=== PATIENT | female | born 1960 | race Caucasian/White ===

== ENCOUNTER 2017-10-28 15:15 | Emergency (ER) | payer MEDICAID ==
[2017-10-28 15:40] LABS: BILIRUBIN,URINE NEGATIVE (NEGATIVE); CLARITY,URINE CLEAR (CLEAR); GLUCOSE, URINE (UA) NEGATIVE (NEGATIVE); KETONES,URINE (UA) NEGATIVE (NEGATIVE); LEUKOCYTE ESTERASE, URINE SMALL (NEGATIVE); NITRITE,URINE NEGATIVE (NEGATIVE); OCCULT BLOOD,URINE LARGE (NEGATIVE); PROTEIN,URINE NEGATIVE (NEGATIVE); UROBILINOGEN,URINE 0.2 (NORMAL) E.U./dL (NORMAL)
[2017-10-28] MEDS ORDERED: NITROFURANTOIN MACRO 100 MG CAPSULE PO STA (16:00)
[2017-10-28] MEDS ORDERED: PHENAZOPYRIDINE 100 MG TABLET PO STA (16:00)
--- NOTE | 2017-10-28 16:01 | ED Physician Documentation ---
PD HPI FEMALE - Stated complaint Stated Complaint: POSS UTI - Chief complaint Chief Complaint: UTI - History obtained from History obtained from: Patient - History of Present Illness Timing - onset: Yesterday (A few days of urinary burning and dysuria without flank pain or fevers or nausea. She has had hematuria though.) Review of Systems Constitutional: denies: Fever, Chills Respiratory: denies: Dyspnea, Cough GI: denies: Abdominal Pain, Nausea, Vomiting PD PAST MEDICAL HISTORY - Past Medical History Past Medical History: Yes Endocrine/Autoimmune: Type 2 diabetes HEENT: Macular degeneration Derm: Other Other Past Medical History: Carcinoma - Past Surgical History Past Surgical History: Yes HEENT: Cataracts, Detached retina repair, Other Derm: Skin cancer surgery - Present Medications Home Medications: Ambulatory Orders Medication Instructions Recorded Confirmed Losartan [Cozaar] 50 mg 10/28/17 Nitrofurantoin Monohyd/M-Cryst 1 tab PO BID 5 Days capsule 10/28/17 [Macrobid 100 mg Capsule] Phenazopyridine HCl [Pyridium] 200 mg PO TID #6 tablet 10/28/17 - Allergies Allergies/Adverse Reactions: Allergies Allergy/AdvReac Type Severity Reaction Status Date / Time gluten Allergy Mild Nausea Verified 10/28/17 15:32 latex Allergy Mild Rash Verified 10/28/17 15:32 - Social History Does the pt smoke?: No Smoking Status: Never smoker Does the pt drink ETOH?: No Does the pt have substance abuse?: No - Immunizations Immunizations are current?: Yes PD ED PE NORMAL - Vitals Vital signs reviewed: Yes - General General: Alert and oriented X 3, No acute distress - Abdomen Abdomen: Soft, Non tender - Back Back: No CVA TTP - Neuro Neuro: Alert and oriented X 3, Normal speech Results - Vitals Vitals: Vital Signs - 24 hr 10/28/17 10/28/17 15:27 16:21 Temperature 36.3 C L 36.2 C L Heart Rate 75 71 Respiratory 18 18 Rate Blood Pressure 164/82 H 158/74 H O2 Saturation 100 100 Oxygen O2 Source Room air - Labs Labs: Laboratory Tests 10/28/17 15:25 Urine Color YELLOW Urine Clarity CLEAR Urine pH 6.0 Ur Specific Clutier <=1.005 Urine Protein NEGATIVE Urine Glucose (UA) NEGATIVE Urine Ketones NEGATIVE Urine Occult Blood LARGE H Urine Nitrite NEGATIVE Urine Bilirubin NEGATIVE Urine Urobilinogen 0.2 (NORMAL) Ur Leukocyte Esterase SMALL H Urine RBC None Seen Urine WBC 4-5 Ur Squamous Epith Cells NONE SEEN Urine Bacteria None Seen Ur Microscopic Review INDICATED Urine Culture Comments INDICATED PD MEDICAL DECISION MAKING - Sepsis Event Vital Signs: Vital Signs - 24 hr 10/28/17 10/28/17 15:27 16:21 Temperature 36.3 C L 36.2 C L Heart Rate 75 71 Respiratory 18 18 Rate Blood Pressure 164/82 H 158/74 H O2 Saturation 100 100 Oxygen O2 Source Room air Departure - Departure Disposition: Home, Self Care Clinical Impression: Cystitis Condition: Good Record reviewed to determine appropriate education?: Yes Instructions: ED UTI Cystitis Female Prescriptions: Nitrofurantoin Monohyd/M-Cryst [Macrobid 100 mg Capsule] 1 tab PO BID 5 Days capsule Phenazopyridine HCl [Pyridium] 200 mg PO TID #6 tablet Comments: We will culture your urine, the results should be done in 48-72 hours. If an antibiotic change is necessary we will call you. Return if worse in the meantime, especially if you develop increasing flank pain, fevers, or cannot keep down the medication. Your blood pressure was elevated today on check into the emergency department. This does not mean that you have hypertension, it is a common phenomenon to come to the emergency department and have elevated blood pressure. I recommend that you see your primary care physician within the week to have it rechecked when you are feeling better. Discharge Date/Time: 10/28/17 16:21
[2017-10-28 16:10] LABS: BACTERIA,URINE None Seen /HPF (None Seen); RBC,URINE None Seen /HPF (0-5); SQUAMOUS EPITHELIAL CELL,UR NONE SEEN (<= Few)
[2017-10-28 16:22] VITALS: BP 158/74
== END 2017-10-28 16:21 | disposition home or self-care (01) ==
LOC: ED 15:15
DX: N30.90 Cystitis, unspecified without hematuria (principal); R03.0 Elevated blood-pressure reading, without diagnosis of hypertension; E11.9 Type 2 diabetes mellitus without complications
CPT/HCPCS: 81001; 87086; 87181; 99283; A9270; 81003

== ENCOUNTER 2017-11-03 16:32 | Emergency (ER) | payer MEDICAID ==
[2017-11-03 16:59] LABS: BILIRUBIN,URINE NEGATIVE (NEGATIVE); GLUCOSE, URINE (UA) NEGATIVE (NEGATIVE); KETONES,URINE (UA) NEGATIVE (NEGATIVE); LEUKOCYTE ESTERASE, URINE NEGATIVE (NEGATIVE); NITRITE,URINE NEGATIVE (NEGATIVE); OCCULT BLOOD,URINE NEGATIVE (NEGATIVE); PROTEIN,URINE NEGATIVE (NEGATIVE); UROBILINOGEN,URINE 0.2 (NORMAL) E.U./dL (NORMAL)
[2017-11-03 17:05] LABS: CLARITY,URINE CLEAR (CLEAR); HCG UR QUAL NEGATIVE
--- NOTE | 2017-11-03 17:31 | ED Physician Documentation ---
PD HPI FEMALE - Stated complaint Stated Complaint: FEM - Chief complaint Chief Complaint: General - History obtained from History obtained from: Patient - History of Present Illness Timing - onset: How many days ago (has had dysuria since the 3rd. Seen and got Rx for Macrobid. Was feeling dry mouth and lightheaded while taking it. Just finished it yesterday. Dysuria improved but feeling it back some again, and is feeling irritated in vaginal area with wiping. No discharge per se.) Timing - duration: Days Timing - details: Gradual onset, Still present Associated symptoms: Dysuria. No: Fever, Abdominal pain, Vaginal bleeding, Vaginal discharge, Urinary frequency Contributing factors: No: Exposed to STD Similar symptoms before: Has not had sx before Recently seen: Emergency Dept Review of Systems Constitutional: denies: Fever, Chills, Myalgias GI: reports: Nausea (after starting abx). denies: Abdominal Pain, Vomiting, Diarrhea : reports: Dysuria. denies: Discharge Skin: denies: Rash, Lesions PD PAST MEDICAL HISTORY - Past Medical History Cardiovascular: None Respiratory: None Neuro: None Endocrine/Autoimmune: Type 2 diabetes HEENT: Macular degeneration Derm: Other - Past Surgical History Past Surgical History: Yes HEENT: Cataracts, Detached retina repair, Other Derm: Skin cancer surgery - Present Medications Home Medications: Ambulatory Orders Medication Instructions Recorded Confirmed Losartan [Cozaar] 50 mg 10/28/17 Nitrofurantoin Monohyd/M-Cryst 1 tab PO BID 5 Days capsule 10/28/17 [Macrobid 100 mg Capsule] Phenazopyridine HCl [Pyridium] 200 mg PO TID #6 tablet 10/28/17 Cephalexin [Keflex] 500 mg PO TID #15 capsule 11/03/17 - Allergies Allergies/Adverse Reactions: Allergies Allergy/AdvReac Type Severity Reaction Status Date / Time gluten Allergy Mild Nausea Verified 11/03/17 16:37 latex Allergy Mild Rash Verified 11/03/17 16:37 - Social History Does the pt smoke?: No Smoking Status: Never smoker Does the pt drink ETOH?: No Does the pt have substance abuse?: No - Immunizations Immunizations are current?: Yes PD ED PE NORMAL - Vitals Vital signs reviewed: Yes - General General: Alert and oriented X 3, Well developed/nourished - HEENT HEENT: Pharynx benign - Cardiac Cardiac: RRR, No murmur - Respiratory Respiratory: Clear bilaterally - Female Female : 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 No cervicitis. ) - Rectal Rectal: Deferred - Back Back: No CVA TTP - Derm Derm: Normal color, Warm and dry, No rash Results - Vitals Vitals: Oxygen O2 Source Room air - Labs Labs: Microbiology 11/03/17 18:30 Wet Prep - Final Genital - Vaginal Laboratory Tests 11/03/17 16:45 Urine Color YELLOW Urine Clarity CLEAR Urine pH 7.0 Ur Specific Deane <=1.005 Urine Protein NEGATIVE Urine Glucose (UA) NEGATIVE Urine Ketones NEGATIVE Urine Occult Blood NEGATIVE Urine Nitrite NEGATIVE Urine Bilirubin NEGATIVE Urine Urobilinogen 0.2 (NORMAL) Ur Leukocyte Esterase NEGATIVE Ur Microscopic Review NOT INDICATED Urine Culture Comments NOT INDICATED Urine HCG, Qual NEGATIVE PD MEDICAL DECISION MAKING - ED course Complexity details: reviewed results, considered differential (i think symptoms are from secondary yeast. Will treat that. Could be recurrent early UTI, so Rx abx if not improved. ), d/w patient - Sepsis Event Vital Signs: Oxygen O2 Source Room air Departure - Departure Disposition: Home, Self Care Clinical Impression: Dysuria, Recent urinary tract infection Condition: Stable Record reviewed to determine appropriate education?: Yes Instructions: ED Dysuria Uncertain Cause Follow-Up: [facility] [Primary Care Provider] - Prescriptions: Cephalexin [Keflex] 500 mg PO TID #15 capsule Comments: We gave you a single antifungal tablet and see if that would clear the apparent mild yeast infection. You can use some lidocaine gel periurethral to help with the burning feeling. Your urine test looks good right now so I think the infection is cleared. If however you continue with discomfort urinating over the next couple of days and thinks having cleared, then it may be a persistent infection and start the cephalexin. Recheck if still not improved a few days after that. Discharge Date/Time: 11/03/17 19:23
[2017-11-03] MEDS ORDERED: FLUCONAZOLE 100 MG TABLET PO STA (17:53)
[2017-11-03] MEDS ORDERED: LIDOCAINE JELLY 2% 5 ML TUBE TOP STA (18:31)
[2017-11-03 19:11] VITALS: BP 143/84
== END 2017-11-03 19:23 | disposition home or self-care (01) ==
LOC: ED 16:32
DX: R30.0 Dysuria (principal)
CPT/HCPCS: 81003; 81025; 87210; 87491; 87591; 99283; A9270; J3490; 81001; 87086

== ENCOUNTER 2017-11-07 03:57 | Outpatient (CLI) | payer MEDICAID | END 2017-11-07 03:58 | disposition critical access hospital (66) | LOC: EMS 03:57 | PROVIDERS: ATTEND Surgery | DX: R10.9 Unspecified abdominal pain (principal); R11.2 Nausea with vomiting, unspecified | CPT/HCPCS: A0425; A0429 ==

== ENCOUNTER 2017-11-07 04:37 | Inpatient (IN) | payer MEDICAID ==
[2017-11-07] MEDS ORDERED: ONDANSETRON 4 MG/2 ML VIAL IVP STA (04:52)
[2017-11-07] MEDS ORDERED: ACETAMINOPHEN 500 MG TABLET PO STA (04:52)
[2017-11-07] MEDS ORDERED: SODIUM CHLORIDE 0.9% 1,000 ML IV ONE (04:52)
--- NOTE | 2017-11-07 05:12 | ED Physician Documentation ---
History of Present Illness - Stated complaint Stated Complaint: RIGHT FLANK PAIN - Chief complaint Chief Complaint: General - History obtained from History obtained from: Patient - Additonal information Additional information: 56-year-old female presents the emergency department with right flank pain which has progressively worsened throughout the day and now is associated with nausea and vomiting. The patient reports feeling weak, chilled and fatigued. No specific triggering factors. No relieving factors. No other associated symptoms. Review of Systems Constitutional: reports: Chills, Fatigue Eyes: denies: Discharge Ears: denies: Drainage/discharge Nose: denies: Congestion Throat: denies: Sore throat Cardiac: denies: Chest pain / pressure, Palpitations Respiratory: denies: Dyspnea GI: reports: Abdominal Pain, Nausea, Vomiting : denies: Hematuria Musculoskeletal: denies: Extremity pain Neurologic: denies: Syncope PD PAST MEDICAL HISTORY - Past Medical History Past Medical History: Yes Cardiovascular: None Respiratory: None Neuro: None Endocrine/Autoimmune: Type 2 diabetes HEENT: Macular degeneration Derm: Other - Past Surgical History Past Surgical History: Yes HEENT: Cataracts, Detached retina repair, Other Derm: Skin cancer surgery - Present Medications Home Medications: Ambulatory Orders Medication Instructions Recorded Confirmed Losartan [Cozaar] 50 mg 10/28/17 Nitrofurantoin Monohyd/M-Cryst 1 tab PO BID 5 Days capsule 10/28/17 [Macrobid 100 mg Capsule] Phenazopyridine HCl [Pyridium] 200 mg PO TID #6 tablet 10/28/17 Cephalexin [Keflex] 500 mg PO TID #15 capsule 11/03/17 - Allergies Allergies/Adverse Reactions: Allergies Allergy/AdvReac Type Severity Reaction Status Date / Time gluten Allergy Mild Nausea Verified 11/07/17 04:46 latex Allergy Mild Rash Verified 11/07/17 04:46 - Social History Does the pt smoke?: No Smoking Status: Never smoker Does the pt drink ETOH?: Yes Does the pt have substance abuse?: No - Immunizations Immunizations are current?: Yes - POLST Patient has POLST: No PD ED PE NORMAL - General General: Alert and oriented X 3, No acute distress - HEENT HEENT: Atraumatic, PERRL, EOMI - Neck Neck: Supple, no meningeal sign - Cardiac Cardiac: RRR, Strong equal pulses - Respiratory Respiratory: No respiratory distress, Clear bilaterally - Abdomen Abdomen: Normal bowel sounds - Derm Derm: Normal color - Extremities Extremities: No deformity, No edema - Neuro Neuro: Alert and oriented X 3, Normal speech - Psych Psych: Normal mood PD ED PE EXPANDED - Abdomen Abdomen: Tender to palpation, Other (Right flank pain). No: Distended, Rebound , Guarding, Epigastric, LUQ, RLQ, LLQ Results - Vitals Vitals: Vital Signs - 24 hr 11/07/17 11/07/17 11/07/17 04:42 04:52 05:26 Temperature 36.7 C Heart Rate 71 83 Respiratory 20 20 Rate Blood Pressure 155/84 H 170/80 H O2 Saturation 98 100 11/07/17 05:32 Temperature Heart Rate 72 Respiratory 20 Rate Blood Pressure 144/89 H O2 Saturation 100 Oxygen O2 Source Room air - Labs Labs: Laboratory Tests 11/07/17 11/07/17 05:00 05:00 WBC 10.4 RBC 3.99 L Hgb 10.4 L Hct 31.7 L MCV 79.3 L MCH 26.0 L MCHC 32.8 RDW 14.9 Plt Count 300 MPV 7.1 L Neut # (Auto) 8.5 H Lymph # (Auto) 1.4 L Starke # (Auto) 0.5 Eos # (Auto) 0.0 Baso # (Auto) 0.0 Absolute Nucleated RBC 0.00 Nucleated RBC % 0.0 Sodium 118 L* Potassium 3.9 Chloride 84 L Carbon Dioxide 23 Anion Gap 11.0 BUN 10 Creatinine 0.5 Estimated GFR (MDRD) 129 Glucose 126 H Calcium 9.3 Total Bilirubin 1.9 H AST 29 ALT 28 Alkaline Phosphatase 65 Total Protein 8.0 Albumin 4.2 Globulin 3.8 Albumin/Globulin Ratio 1.1 Lipase 27 - Rads (name of study) CT Abdomen/pelvis Radiology: Final report received (Impression:Descendingdiverticulitis) PD MEDICAL DECISION MAKING - ED course ED course: The patient has acute hyponatremia which may be secondary to hypovolemia from nausea and vomiting and the fact that she takes losartan. The patient also has acute diverticulitis which is most likely the source of her pain. The patient will require admission to the hospital for ongoing management of her acute symptoms. The findings and plan were discussed the patient who understands and agrees to the plan. The case was discussed with the hospitalist Dr. Alonso who accepts the patient onto her service - Sepsis Event Vital Signs: Vital Signs - 24 hr 11/07/17 11/07/17 11/07/17 04:42 04:52 05:26 Temperature 36.7 C Heart Rate 71 83 Respiratory 20 20 Rate Blood Pressure 155/84 H 170/80 H O2 Saturation 98 100 11/07/17 05:32 Temperature Heart Rate 72 Respiratory 20 Rate Blood Pressure 144/89 H O2 Saturation 100 Oxygen O2 Source Room air Departure - Departure Disposition: [facility] DC/Xfer Clinical Impression: Hyponatremia, Diverticulitis Vomiting Qualifiers: Vomiting type: unspecified Vomiting Intractability: unspecified Nausea presence : with nausea Qualified Code(s): R11.2 - Nausea with vomiting, unspecified
[2017-11-07] MEDS ORDERED: MORPHINE 10 MG/ML VIAL IVP STA (05:16)
[2017-11-07 05:20] LABS: BASOPHILS % (AUTO) 0.5 %; EOSINOPHILS % (AUTO) 0.2 %; HGB - HEMOGLOBIN 10.4 g/dL (12.0-16.0); LYMPHOCYTES # (AUTO) 1.4 10^3/uL (1.5-3.5); MEAN CORPUSCULAR HGB CONC 32.8 g/dL (32.0-36.0); MEAN CORPUSCULAR VOLUME 79.3 fL (81.0-99.0); MEAN PLATELET VOLUME 7.1 fL (7.9-10.8); MONOCYTES # (AUTO) 0.5 10^3/uL (0.0-1.0); MONOCYTES % (AUTO) 4.9 %; NEUTROPHILS # (AUTO) 8.5 10^3/uL (1.5-6.6); NEUTROPHILS % (AUTO) 81.4 %; PLT - PLATELET COUNT 300 10^3/uL (130-450); RED BLOOD COUNT 3.99 10^6/uL (4.20-5.40); RED CELL DISTRIBUTION WIDTH 14.9 % (12.0-15.0); WHITE BLOOD COUNT 10.4 x10^3/uL (4.8-10.8)
[2017-11-07] MEDS ORDERED: IOPAMIDOL-300 100 ML VIAL ONE (05:25)
[2017-11-07 05:27] LABS: ALBUMIN 4.2 g/dL (3.2-5.5); ALBUMIN/GLOBULIN RATIO 1.1 (1.0-2.2); BILIRUBIN,TOTAL 1.9 mg/dL (0.2-1.0); CALCIUM 9.3 mg/dL (8.5-10.3); CREATININE 0.5 mg/dL (0.4-1.0)
[2017-11-07] MEDS ORDERED: IOPAMIDOL-300 100 ML VIAL IVP ONE (05:52)
--- NOTE | 2017-11-07 06:10 | CT Report ---
Procedure Date: 11/07/2017 Accession Number: [id number] / [id number] Procedure: CT - Abdomen/Pelvis W/ CPT Code: FULL RESULT: EXAM: CT ABDOMEN AND PELVIS EXAM DATE: 11/07/2017 05:54 AM. CLINICAL HISTORY: Right flank pain. COMPARISONS: None. TECHNIQUE: Routine helical CT imaging was performed through the abdomen and pelvis. IV contrast: Yes. Enteric contrast: No. Reconstructions: Coronal and sagittal. In accordance with CT protocol optimization, one or more of the following dose reduction techniques were utilized for this exam: automated exposure control, adjustment of mA and/or KV based on patient size, or use of iterative reconstructive technique. FINDINGS: Lung Bases: Unremarkable. Liver: Mildly fatty. No suspicious masses. Gallbladder/Bile Ducts: Unremarkable. Spleen: Unremarkable. Pancreas: Unremarkable. Adrenal Glands: Unremarkable. Kidneys: Unremarkable. No suspicious masses or hydronephrosis. Peritoneal Cavity/Bowel: Proximal descending colon diverticulitis with mild surrounding inflammatory changes. No gross perforation or abscess seen. Bowel otherwise appears unremarkable. Pelvic Organs: Bladder, uterus, and adnexa appear unremarkable. Vasculature: No aneurysms or other significant abnormality. Bones: No significant abnormality with incidental note of mild chronic-appearing T11 superior endplate compression deformity. Other: None. IMPRESSION: 1. Proximal descending colon diverticulitis without apparent complication. 2. Mildly fatty liver. RADIA
[2017-11-07] MEDS ORDERED: PIPERACILLIN/TAZOBACTAM 4.5 GM in SODIUM CHLORIDE 0.9% MINIBAG 100 ML IV STA (06:11)
[2017-11-07] MEDS ORDERED: SODIUM CHLORIDE FLUSH 0.9% 10 ML SYRINGE IVP PRN (06:34)
[2017-11-07] MEDS ORDERED: ONDANSETRON ODT 4 MG TABLET TL PRN (06:34)
[2017-11-07] MEDS ORDERED: oxyCODONE 5 MG TABLET PO PRN (06:34)
[2017-11-07] MEDS ORDERED: ONDANSETRON 4 MG/2 ML VIAL IVP PRN (06:34)
[2017-11-07 06:37] LABS: BILIRUBIN,URINE NEGATIVE (NEGATIVE); GLUCOSE, URINE (UA) NEGATIVE (NEGATIVE); KETONES,URINE (UA) 15 mg/dL (NEGATIVE); LEUKOCYTE ESTERASE, URINE NEGATIVE (NEGATIVE); NITRITE,URINE NEGATIVE (NEGATIVE); OCCULT BLOOD,URINE NEGATIVE (NEGATIVE); PH,URINE 7.5 PH (5.0-7.5); PROTEIN,URINE NEGATIVE (NEGATIVE); UROBILINOGEN,URINE 0.2 (NORMAL) E.U./dL (NORMAL)
[2017-11-07 06:40] LABS: CLARITY,URINE CLEAR (CLEAR)
[2017-11-07] MEDS ORDERED: PHENAZOPYRIDINE HCL 200 MG PO SCH (06:45)
[2017-11-07] MEDS: PHENAZOPYRIDINE 100 MG TABLET PO SCH ×3 (08:00→22:12)
[2017-11-07] MEDS: SODIUM CHLORIDE 0.9% 1,000 ML IV SCH ×2 (08:00→18:16)
[2017-11-07] MEDS: POLYETHYLENE GLYCOL 3350 17 GM PACKET PO SCH (08:02)
[2017-11-07] MEDS: SODIUM CHLORIDE FLUSH 0.9% 10 ML SYRINGE IVP SCH ×2 (08:02→16:35)
[2017-11-07] MEDS ORDERED: NITROFURANTOIN MACRO 100 MG CAPSULE PO SCH (09:00)
[2017-11-07 09:12] LABS: CALCIUM 9.4 mg/dL (8.5-10.3); CREATININE 0.6 mg/dL (0.4-1.0)
[2017-11-07 10:23] LABS: HB2 TOTAL 11.3 g/dL; HEMOGLOBIN A1C 0.46 g/dL; HEMOGLOBIN A1C % 5.9 % (4.6-6.2)
--- NOTE | 2017-11-07 11:13 | HISTORY & PHYSICAL EXAMINATION ---
Chief Complaint - Chief Complaint Chief Complaint: right mary pain History of Present Illness - History Obtained From History obtained from: pt - History of Present Illness HPI Comment/Other: Ms. Mena is a 56-year-old female with a H significance for DM2, macular degeneration, who presents the emergency department with complaints of right flank pain. pt report she has progressively worsened throughout 4 days. initially it was associated with nausea. Then she developed vomiting and loose stool The patient reports feeling weak, chilled and fatigued. She report her pain located her right mary area, and the pain is more likely pressure. Pt report she usually follow up the naturopathic doctor, and she took more than 10 naturopathic medications. Pt denies chest pain, Shortness of breath, fever, cough, headache, vision change, dysuria. CT of abdomen reveals proximal descending colon diverticulitis without apparent complication. Her sodium is 118. History - Past Medical History Cardiovascular: reports: None Respiratory: reports: None Neuro: reports: None Endocrine/Autoimmune: reports: Type 2 diabetes HEENT: reports: Macular degeneration Derm: reports: Other MRSA Hx?: No - Past Surgical History HEENT: reports: Cataracts, Detached retina repair, Other Derm: reports: Skin cancer surgery - Family & Social History Family History: Mother: Alive and Well, Diabetes, Type 2, Father: , CAD , Diabetes, Type 2 Family History Comment/Other: pt report she is single, and no child. she is living at [facility]. Living arrangement: At home Living Situation: Alone Social History Notes: she denies cigarette smoking, alcohol and drug abuse - Substance History Use: Uses substance without health or social issues: NONE - POLST Patient has POLST: No POLST Status: Full Code Meds/Allgy - Home Medications Home Medications: Ambulatory Orders Medication Instructions Recorded Confirmed Losartan [Cozaar] 50 mg PO DAILY 10/28/17 11/07/17 Metformin HCl [Metformin HCl] 11/07/17 - Allergies Allergies/Adverse Reactions: Allergies Allergy/AdvReac Type Severity Reaction Status Date / Time gluten Allergy Mild Nausea Verified 11/07/17 04:46 latex Allergy Mild Rash Verified 11/07/17 04:46 Review of Systems - Constitutional Constitutional: reports: Fatigue, Chills, Weakness. denies: Fever, Malaise, Poor appetite, Diaphoresis, Night sweats, Weight gain, Weight loss - Eyes Eyes: denies: Pain, Irritation, Amaurosis, Blurred vision, Spots in vision, Field loss, Vision loss, Dipolpia, Corrective lenses - Ears, Nose & Throat Ears, Nose & Throat: denies: Ear pain, Hearing loss, Vertigo, Nasal pain, Nosebleeds, Nasal obstruction, Nasal congestion, Dentures, Sore throat, Mouth lesions, Dental decay - Cardiovascular Cariovascular: denies: Irregular heart rate, Palpitations, Chest pain, Edema, Lightheadedness, Syncope, Exertional dyspnea, Decr. exercise tolerance - Respiratory Respiratory: denies: Cough, Sputum production, Wheezing, Snoring, Hemoptysis, Orthopnea, SOB at rest, SOB with exertion - Gastrointestinal Gastrointestinal: reports: Abdominal pain, Nausea, Vomiting. denies: Abdominal distention, Constipation, Diarrhea, Change in bowel habits, Rectal bleeding, Black stools, Bloody stools, Bile emesis, Mary blood emesis, Coffee grounds emesis, Reflux/heartburn, Bloating, Poor appetite - Genitourinary Genitourinary: denies: Dysuria, Frequency, Urgency, Hematuria, Incontinence, Flank pain, Nocturia, Urethral discharge - Musculoskeletal Musculoskeletal: denies: Muscle pain, Muscle aches, Stiffness, Limited range of motion, Muscle weakness - Integumentary Integumentary: denies: Rash, Pruritis, Lesions, Dryness, Lumps, Acne, Pigment changes, Nail changes - Neurological Neurological: denies: General weakness, Focal weakness, Headache, Dizziness, Numbness, Memory problems, Pre-existing deficit, Abnormal gait, Seizures, Incoordination, Slurred speech - Psychiatric Psychiatric: denies: Depression, Anxiety, Suicidal, Delusions, Hallucinations, Homicidal - Endocrine Endocrine: denies: Polyuria, Polydypsia, Polyphagia, Intolerance to cold - Hematologic/Lymphatic Hematologic/Lymphatic: denies: Anemia, Bruising, Petechiae, Blood clots, Lymphadenopathy, Bleeding tendencies Exam - Vital Signs Reviewed Vital Signs: Yes Vital Signs: Vital Signs x48h Temp Pulse Pulse Resp BP BP Pulse Ox 11/07/17 07:30 36.6 C 65 22 129/75 99 11/07/17 06:55 74 17 135/95 H 100 - Physical Exam General Appearance: positive: No acute distress, Alert. negative: Lethargic Eyes Bilateral: positive: Normal inspection, PERRL, No lid inflammation, Conjunctivae nml ENT: positive: ENT inspection nml, Pharynx nml, No signs of dehydration. negative: Purulent nasal drainage, Pharyngeal erythema, Oral lesions Neck: positive: Nml inspection, Thyroid nml, No JVD, Trachea midline. negative : Thyromegaly, Lymphadenopathy (R), Lymphadenopathy (L), Stiff neck, Swelling/ bruising, Tracheal deviation Respiratory: positive: Chest non-tender, No respiratory distress, Breath sounds nml. negative: Wheezes, Rales, Rhonchi Cardiovascular: positive: Regular rate & rhythm, No murmur, No gallop. negative : Irregularly irregular, Extrasystoles, Tachycardia, Bradycardia, JVD present, Systolic murmur, Diastolic murmur Peripheral Pulses: positive: 2+ Abdomen: positive: Non-tender, No organomegaly, Nml bowel sounds, No distention. negative: Tenderness, Guarding, Rebound Back: positive: Nml inspection. negative: CVA tenderness (R), CVA tenderness (L ) Skin: positive: Color nml, No rash, Warm, Dry. negative: Cyanosis, Diaphoresis , Pallor Extremities: positive: Non-tender, Full ROM, Nml appearance. negative: Calf tenderness, Joint swelling, Pamela's sign/cords Neurologic/Psychiatric: positive: Oriented x3, Motor nml, Sensation nml, Mood/ affect nml. negative: Weakness, Sensory loss, Facial droop, Slurred/abnml speech, Depressed mood/affect Conclusion/Plan - Problem List (1) Diverticulitis Conclusion/Plan: CT reveals diverticulitis, pt has abdominal pain treat Zosyn daily lab and vital monitor (2) Hyponatremia Conclusion/Plan: Na is 118, it seems hypovolume hyponatremia NS of IVF daily lab monitor (3) DM2 (diabetes mellitus, type 2) Conclusion/Plan: hold Mentformin start slide scale, ACHS hypoglycemia (5) HTN (hypertension) Conclusion/Plan: remain home meds Losartan vital monitor (6) DVT prophylaxis Conclusion/Plan: SCD. pt has no limitation of mobility (7) Full code status Conclusion/Plan: pt request full code - Lab Results Fish Bones: 11/07/17 05:00 11/07/17 09:00 Core Measures - Anticipated LOS I expect patient to be DC'd or transferred within 96 hours.: Yes - DVT/VTE - Prophylaxis VTE/DVT Device ordered at admit?: Yes VTE/DVT Prophylaxis med ordered at admit?: No
[2017-11-07] MEDS: INSULIN ASPART 300 UNIT/3 ML PEN SUBQ SCH ×3 (12:09→22:12)
[2017-11-07] MEDS: PIPERACILLIN/TAZOBACTAM 4.5 GM in SODIUM CHLORIDE 0.9% MINIBAG 100 ML IV SCH ×2 (12:09→19:40)
[2017-11-07] MEDS: FERROUS SULFATE 325 MG TABLET PO SCH (12:12)
[2017-11-07] MEDS: ACETAMINOPHEN 325 MG TABLET PO PRN (12:36)
[2017-11-07 12:56] LABS: MEAN RETIC VALUE 109.7; RED BLOOD COUNT 4.21 10^6/uL (4.20-5.40)
[2017-11-07 13:19] LABS: % IRON SATURATION 6 % (20-50); IRON 29 ug/dL (28-170); TOTAL IRON BINDING CAPACITY 490 ug/dL (250-450); TRANSFERRIN 350 mg/dL (192-382)
[2017-11-07 13:31] LABS: FERRITIN 14.5 ng/mL (11.0-306.8)
[2017-11-07 15:08] LABS: CALCIUM 9.4 mg/dL (8.5-10.3); CREATININE 0.7 mg/dL (0.4-1.0)
--- NOTE | 2017-11-07 15:44 | PROVIDER PROGRESS NOTE ---
Objective - Vital Signs/Intake & Output Intake & Output: Intake & Output 11/04/17 11/05/17 11/06/17 11/07/17 23:59 23:59 23:59 23:59 Intake Total 1030 Balance 1030 - Lab Results Fish Bones: 11/07/17 05:00 11/07/17 14:55 Other Labs: Lab Results x24hrs 11/07/17 11/07/17 11/07/17 Range/Units 14:55 12:45 12:45 RBC (4.20-5.40) 10^6/uL Reticulocyte % (Auto) (0.5-2.3) % Absolute Retic (0.020-0.110) 10^6/uL Sodium 131 L (135-145) mmol/L Potassium 3.9 (3.5-5.0) mmol/L Chloride 97 L (101-111) mmol/L Carbon Dioxide 25 (21-32) mmol/L Anion Gap 9.0 (6-13) BUN 8 (6-20) mg/dL Creatinine 0.7 (0.4-1.0) mg/dL Estimated GFR (MDRD) 87 L (>89) Glucose 126 H (70-100) mg/dL Calcium 9.4 (8.5-10.3) mg/dL Iron (28-170) ug/dL TIBC (250-450) ug/dL % Saturation (20-50) % Transferrin (192-382) mg/dL Ferritin 14.5 (11.0-306.8) ng/mL Lactate Dehydrogenase 137 (91-225) IU/L Vitamin B12 1472 H (180-914) pg/mL 11/07/17 11/07/17 11/07/17 Range/Units 12:45 12:45 12:45 RBC 4.21 (4.20-5.40) 10^6/uL Reticulocyte % (Auto) 1.59 (0.5-2.3) % Absolute Retic 0.067 (0.020-0.110) 10^6/uL Sodium 130 L (135-145) mmol/L Potassium (3.5-5.0) mmol/L Chloride (101-111) mmol/L Carbon Dioxide (21-32) mmol/L Anion Gap (6-13) BUN (6-20) mg/dL Creatinine (0.4-1.0) mg/dL Estimated GFR (MDRD) (>89) Glucose (70-100) mg/dL Calcium (8.5-10.3) mg/dL Iron 29 (28-170) ug/dL TIBC 490 H (250-450) ug/dL % Saturation 6 L (20-50) % Transferrin 350 (192-382) mg/dL Ferritin (11.0-306.8) ng/mL Lactate Dehydrogenase (91-225) IU/L Vitamin B12 (180-914) pg/mL 11/07/17 Range/Units 09:00 RBC (4.20-5.40) 10^6/uL Reticulocyte % (Auto) (0.5-2.3) % Absolute Retic (0.020-0.110) 10^6/uL Sodium 125 L (135-145) mmol/L Potassium 3.8 (3.5-5.0) mmol/L Chloride 91 L (101-111) mmol/L Carbon Dioxide 24 (21-32) mmol/L Anion Gap 10.0 (6-13) BUN 9 (6-20) mg/dL Creatinine 0.6 (0.4-1.0) mg/dL Estimated GFR (MDRD) 104 (>89) Glucose 134 H (70-100) mg/dL Calcium 9.4 (8.5-10.3) mg/dL Iron (28-170) ug/dL TIBC (250-450) ug/dL % Saturation (20-50) % Transferrin (192-382) mg/dL Ferritin (11.0-306.8) ng/mL Lactate Dehydrogenase (91-225) IU/L Vitamin B12 (180-914) pg/mL
[2017-11-07 21:20] LABS: CREATININE 0.8 mg/dL (0.4-1.0)
[2017-11-08] MEDS: SODIUM CHLORIDE FLUSH 0.9% 10 ML SYRINGE IVP SCH ×3 (00:45→16:46)
[2017-11-08] MEDS: PIPERACILLIN/TAZOBACTAM 4.5 GM in SODIUM CHLORIDE 0.9% MINIBAG 100 ML IV SCH ×4 (00:46→19:21)
[2017-11-08 04:50] LABS: BASOPHILS # (AUTO) 0.1 10^3/uL (0.0-0.1); BASOPHILS % (AUTO) 1.2 %; EOSINOPHILS # (AUTO) 0.1 10^3/uL (0.0-0.7); EOSINOPHILS % (AUTO) 2.1 %; HGB - HEMOGLOBIN 9.4 g/dL (12.0-16.0); LYMPHOCYTES # (AUTO) 1.4 10^3/uL (1.5-3.5); LYMPHOCYTES % (AUTO) 23.8 %; MEAN CORPUSCULAR HEMOGLOBIN 26.3 pg (27.0-31.0); MEAN CORPUSCULAR HGB CONC 33.2 g/dL (32.0-36.0); MEAN CORPUSCULAR VOLUME 79.2 fL (81.0-99.0); MEAN PLATELET VOLUME 6.9 fL (7.9-10.8); MONOCYTES # (AUTO) 0.7 10^3/uL (0.0-1.0); MONOCYTES % (AUTO) 12.3 %; NEUTROPHILS # (AUTO) 3.5 10^3/uL (1.5-6.6); NEUTROPHILS % (AUTO) 60.6 %; PLT - PLATELET COUNT 256 10^3/uL (130-450); RED BLOOD COUNT 3.57 10^6/uL (4.20-5.40); RED CELL DISTRIBUTION WIDTH 14.8 % (12.0-15.0); WHITE BLOOD COUNT 5.8 x10^3/uL (4.8-10.8)
[2017-11-08 04:55] LABS: CALCIUM 8.7 mg/dL (8.5-10.3); CREATININE 0.8 mg/dL (0.4-1.0)
[2017-11-08] MEDS: PHENAZOPYRIDINE 100 MG TABLET PO SCH ×3 (06:03→21:21)
[2017-11-08] MEDS: SODIUM CHLORIDE 0.9% 1,000 ML IV SCH ×2 (06:07→16:45)
[2017-11-08] MEDS: POLYETHYLENE GLYCOL 3350 17 GM PACKET PO SCH (08:57)
[2017-11-08] MEDS: INSULIN ASPART 300 UNIT/3 ML PEN SUBQ SCH ×4 (08:57→20:40)
[2017-11-08] MEDS: FERROUS SULFATE 325 MG TABLET PO SCH (08:57)
[2017-11-08] MEDS: ACETAMINOPHEN 325 MG TABLET PO PRN (10:45)
--- NOTE | 2017-11-08 14:38 | PROVIDER PROGRESS NOTE ---
Subjective - Prog Note Date Prog Note Date: 11/08/17 - Subjective Pt reports feeling: Improved Subjective: pt report she had a good improvement. she feels her abdominal pain is good controlled. she feel more stronger. she report her caregiver will come back tomorrow. Pt denies chest pain, fever, chill, SOB. she concern her diet. she report her diet often make her cramping and diarrhea. 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 Current Medications - Current Medications Current Medications: Active Medications Acetaminophen (Tylenol) 650 mg PO Q4HR PRN PRN Reason: Pain 1 to 4 Last Admin: 11/08/17 10:45 Dose: 650 mg Ferrous Sulfate (Feosol) 325 mg PO DAILYWM [facility] Last Admin: 11/08/17 08:57 Dose: 325 mg Sodium Chloride (Normal Saline 0.9%) 1,000 mls @ 100 mls/hr IV .Q10H [facility] Last Admin: 11/08/17 06:07 Dose: 100 mls/hr Piperacillin Sod/Tazobactam (Sod 4.5 gm/ Sodium Chloride) 100 mls @ 200 mls/hr IV Q6H [facility] Last Infusion: 11/08/17 12:40 Dose: Infused Insulin Aspart (Novolog) 1 - 5 unit SUBQ 0800,1200,1700,2100 [facility] PRN Reason: Protocol Last Admin: 11/08/17 12:05 Dose: Not Given Ondansetron HCl (Zofran Inj) 4 mg IVP Q6HR PRN PRN Reason: Nausea / Vomiting Ondansetron HCl (Zofran Odt) 4 mg TL Q6HR PRN PRN Reason: Nausea / Vomiting Oxycodone HCl (Roxicodone) 5 mg PO Q4HR PRN PRN Reason: Pain 5 to 7 Phenazopyridine HCl (Pyridium) 200 mg PO TID [facility] Stop: 11/08/17 22:01 Last Admin: 11/08/17 13:37 Dose: 200 mg Polyethylene Glycol (Miralax) 17 gm PO DAILY [facility] Last Admin: 11/08/17 08:57 Dose: 17 gm Sodium Chloride (Normal Saline Flush 0.9%) 10 ml IVP PRN PRN PRN Reason: NEEDED PER PROVIDER ORDERS Sodium Chloride (Normal Saline Flush 0.9%) 10 ml IVP 0100,0900,1700 [facility] Last Admin: 11/08/17 08:57 Dose: Not Given Losartan [Cozaar] 50 mg PO QPM 10/28/17 Ascorbic Acid 500 mg PO DAILY 11/07/17 Aspirin 325 mg PO DAILY 11/07/17 Cholecalciferol (Vitamin D3) [Vitamin D3] 1,000 units PO DAILY 11/07/17 Cyanocobalamin (Vitamin B-12) [Vitamin B-12] 1,000 mcg PO DAILY 11/07/17 Metformin HCl [Metformin HCl] 500 mg PO TIDWM 11/07/17 Potassium Gluconate 99 mg PO DAILY 11/07/17 Saccharomyces Boulardii [Florastor] 250 mg PO BIDWM 11/07/17 Vitamin B Complex 1 tab PO DAILY 11/07/17 Objective - Vital Signs/Intake & Output Reviewed Vital Signs: Yes Vital Signs: Vital Signs x48h Temp Pulse Resp BP Pulse Ox 11/08/17 07:46 36.8 C 57 L 16 96/55 L 96 Intake & Output: Intake & Output 11/05/17 11/06/17 11/07/17 11/08/17 23:59 23:59 23:59 23:59 Intake Total 2870 3130 Balance 2870 3130 - Objective General Appearance: positive: No acute distress, Alert. negative: Lethargic Eyes Bilateral: positive: Normal inspection, PERRL, No lid inflammation, Conjunctivae nml ENT: positive: ENT inspection nml, Pharynx nml, No signs of dehydration. negative: Purulent nasal drainage, Pharyngeal erythema, Oral lesions Neck: positive: Nml inspection, Thyroid nml, No JVD, Trachea midline. negative : Thyromegaly, Lymphadenopathy (R), Lymphadenopathy (L), Stiff neck, Carotid bruit, Swelling/bruising, Tracheal deviation Respiratory: positive: Chest non-tender, No respiratory distress, Breath sounds nml. negative: Wheezes, Rales, Rhonchi Cardiovascular: positive: Regular rate & rhythm, No murmur, No gallop. negative : Irregularly irregular, Extrasystoles, Tachycardia, Bradycardia, JVD present, Systolic murmur, Diastolic murmur Peripheral Pulses: 2+ Radial (R), 2+ Radial (L), 2+ Dorsalis pedis (R), 2+ Dorsalis pedis (L) Abdomen: positive: Non-tender, No organomegaly, Nml bowel sounds, No distention. negative: Tenderness, Guarding, Rebound Back: positive: Nml inspection. negative: CVA tenderness (R), CVA tenderness (L ) Skin: positive: Color nml, No rash, Warm, Dry. negative: Cyanosis, Diaphoresis , Pallor Extremities: positive: Non-tender, Full ROM, Nml appearance. negative: Calf tenderness, Joint swelling, Pamela's sign/cords Neurologic/Psychiatric: positive: Oriented x3, Motor nml, Sensation nml, Mood/ affect nml. negative: Weakness, Sensory loss, Facial droop, Slurred/abnml speech, Depressed mood/affect - Lab Results Fish Bones: 11/08/17 04:40 11/08/17 04:40 Other Labs: Lab Results x24hrs 11/08/17 11/08/17 11/08/17 Range/Units 11:10 07:38 04:40 WBC 5.8 (4.8-10.8) x10^3/uL RBC 3.57 L (4.20-5.40) 10^6/uL Hgb 9.4 L (12.0-16.0) g/dL Hct 28.3 L (37.0-47.0) % MCV 79.2 L (81.0-99.0) fL MCH 26.3 L (27.0-31.0) pg MCHC 33.2 (32.0-36.0) g/dL RDW 14.8 (12.0-15.0) % Plt Count 256 (130-450) 10^3/uL MPV 6.9 L (7.9-10.8) fL Neut # (Auto) 3.5 (1.5-6.6) 10^3/uL Lymph # (Auto) 1.4 L (1.5-3.5) 10^3/uL [place] # (Auto) 0.7 (0.0-1.0) 10^3/uL Eos # (Auto) 0.1 (0.0-0.7) 10^3/uL Baso # (Auto) 0.1 (0.0-0.1) 10^3/uL Absolute Nucleated RBC 0.00 x10^3/uL Nucleated RBC % 0.1 /100WBC Sodium (135-145) mmol/L Potassium (3.5-5.0) mmol/L Chloride (101-111) mmol/L Carbon Dioxide (21-32) mmol/L Anion Gap (6-13) BUN (6-20) mg/dL Creatinine (0.4-1.0) mg/dL Estimated GFR (MDRD) (>89) Glucose (70-100) mg/dL POC Whole Bld Glucose 93 99 (70 - 100) mg/dL Calcium (8.5-10.3) mg/dL 11/08/17 11/07/17 11/07/17 Range/Units 04:40 21:00 20:54 WBC (4.8-10.8) x10^3/uL RBC (4.20-5.40) 10^6/uL Hgb (12.0-16.0) g/dL Hct (37.0-47.0) % MCV (81.0-99.0) fL MCH (27.0-31.0) pg MCHC (32.0-36.0) g/dL RDW (12.0-15.0) % Plt Count (130-450) 10^3/uL MPV (7.9-10.8) fL Neut # (Auto) (1.5-6.6) 10^3/uL Lymph # (Auto) (1.5-3.5) 10^3/uL [place] # (Auto) (0.0-1.0) 10^3/uL Eos # (Auto) (0.0-0.7) 10^3/uL Baso # (Auto) (0.0-0.1) 10^3/uL Absolute Nucleated RBC x10^3/uL Nucleated RBC % /100WBC Sodium 134 L 132 L (135-145) mmol/L Potassium 4.2 3.9 (3.5-5.0) mmol/L Chloride 103 101 (101-111) mmol/L Carbon Dioxide 23 24 (21-32) mmol/L Anion Gap 8.0 7.0 (6-13) BUN 9 11 (6-20) mg/dL Creatinine 0.8 0.8 (0.4-1.0) mg/dL Estimated GFR (MDRD) 75 L 75 L (>89) Glucose 102 H 98 (70-100) mg/dL POC Whole Bld Glucose 98 (70 - 100) mg/dL Calcium 8.7 9.0 (8.5-10.3) mg/dL 11/07/17 11/07/17 11/07/17 Range/Units 16:34 14:55 11:29 WBC (4.8-10.8) x10^3/uL RBC (4.20-5.40) 10^6/uL Hgb (12.0-16.0) g/dL Hct (37.0-47.0) % MCV (81.0-99.0) fL MCH (27.0-31.0) pg MCHC (32.0-36.0) g/dL RDW (12.0-15.0) % Plt Count (130-450) 10^3/uL MPV (7.9-10.8) fL Neut # (Auto) (1.5-6.6) 10^3/uL Lymph # (Auto) (1.5-3.5) 10^3/uL [place] # (Auto) (0.0-1.0) 10^3/uL Eos # (Auto) (0.0-0.7) 10^3/uL Baso # (Auto) (0.0-0.1) 10^3/uL Absolute Nucleated RBC x10^3/uL Nucleated RBC % /100WBC Sodium 131 L (135-145) mmol/L Potassium 3.9 (3.5-5.0) mmol/L Chloride 97 L (101-111) mmol/L Carbon Dioxide 25 (21-32) mmol/L Anion Gap 9.0 (6-13) BUN 8 (6-20) mg/dL Creatinine 0.7 (0.4-1.0) mg/dL Estimated GFR (MDRD) 87 L (>89) Glucose 126 H (70-100) mg/dL POC Whole Bld Glucose 95 167 H (70 - 100) mg/dL Calcium 9.4 (8.5-10.3) mg/dL ABX Reporting Has patient been on IV antibiotics over the past 48 hours?: Yes Assessment/Plan - Problem List (1) Diverticulitis Impression: Conclusion/Plan: 11/08 pt feels better, this is day 1, will continue zosyn, plan d/c pt tomorrow CT reveals diverticulitis, pt has abdominal pain treat Zosyn daily lab and vital monitor (2) Hyponatremia Conclusion/Plan: 11/08, today Na 134, great improvement continue NS IVF check na daily lab Na is 118, it seems hypovolume hyponatremia NS of IVF daily lab monitor (3) DM2 (diabetes mellitus, type 2) Conclusion/Plan: 11/08, good controlled glucose, continue current insulin , slide scale. hold Mentformin start slide scale, ACHS hypoglycemia (5) HTN (hypertension) Conclusion/Plan: 11/08 stable, continue current plan remain home meds Losartan vital monitor
[2017-11-09] MEDS: PIPERACILLIN/TAZOBACTAM 4.5 GM in SODIUM CHLORIDE 0.9% MINIBAG 100 ML IV SCH ×3 (00:07→11:38)
[2017-11-09] MEDS: SODIUM CHLORIDE 0.9% 1,000 ML IV SCH ×2 (00:08→04:48)
[2017-11-09] MEDS: SODIUM CHLORIDE FLUSH 0.9% 10 ML SYRINGE IVP SCH ×2 (00:08→08:26)
[2017-11-09 05:25] LABS: BASOPHILS # (AUTO) 0.1 10^3/uL (0.0-0.1); BASOPHILS % (AUTO) 1.5 %; EOSINOPHILS # (AUTO) 0.3 10^3/uL (0.0-0.7); EOSINOPHILS % (AUTO) 5.6 %; HGB - HEMOGLOBIN 9.7 g/dL (12.0-16.0); LYMPHOCYTES # (AUTO) 1.8 10^3/uL (1.5-3.5); LYMPHOCYTES % (AUTO) 30.2 %; MEAN CORPUSCULAR HEMOGLOBIN 25.9 pg (27.0-31.0); MEAN CORPUSCULAR HGB CONC 32.5 g/dL (32.0-36.0); MEAN CORPUSCULAR VOLUME 79.6 fL (81.0-99.0); MEAN PLATELET VOLUME 7.5 fL (7.9-10.8); MONOCYTES # (AUTO) 0.7 10^3/uL (0.0-1.0); MONOCYTES % (AUTO) 11.4 %; NEUTROPHILS % (AUTO) 51.3 %; PLT - PLATELET COUNT 272 10^3/uL (130-450); RED BLOOD COUNT 3.75 10^6/uL (4.20-5.40); RED CELL DISTRIBUTION WIDTH 15.1 % (12.0-15.0); WHITE BLOOD COUNT 5.8 x10^3/uL (4.8-10.8)
[2017-11-09 05:28] LABS: CALCIUM 9.1 mg/dL (8.5-10.3); CREATININE 0.7 mg/dL (0.4-1.0)
[2017-11-09] MEDS: INSULIN ASPART 300 UNIT/3 ML PEN SUBQ SCH ×2 (08:26→11:28)
[2017-11-09] MEDS: FERROUS SULFATE 325 MG TABLET PO SCH (08:30)
[2017-11-09] MEDS: POLYETHYLENE GLYCOL 3350 17 GM PACKET PO SCH (08:30)
[2017-11-09] MEDS: ACETAMINOPHEN 325 MG TABLET PO PRN (08:38)
--- NOTE | 2017-11-09 13:11 | Discharge Plan ---
Discharge Plan Disposition: Home, Self Care Condition: Poor Prescriptions: Ciprofloxacin HCl [Cipro] 500 mg PO BID #14 tablet Ferrous Sulfate 325 mg PO DAILY #30 tablet Metronidazole [Flagyl] 500 mg PO BID #14 tablet Diet: Regular Activity Restrictions: Activity as Tolerated Shower Restrictions: No (fall precaution) Instruction Topics: Ciprofloxacin tablets, Phenazopyridine tablets, Metronidazole tablets or capsules, Diverticulitis Dc Additional Instructions or Follow Up instructions: You may follow up your PCP in one week. Should your symptoms return or worsen, you may present ER or call 911 for help. No Smoking: If you smoke, Please STOP! Call for help. Follow-up with: PARK PABLO [Primary Care Provider] -
--- NOTE | 2017-11-09 13:15 | DISCHARGE SUMMARY ---
Discharge Summary Discharge Date: 11/09/17 Discharging Provider: ROLAND Primary Care Provider: Dr. Hurtado Condition at Discharge: Poor Discharge Disposition: 01 Home, Self Care Discharge Facility Name: home - DIAGNOSES Admission Diagnoses: (1) Diverticulitis (2) Hyponatremia (3) DM2 (diabetes mellitus, type 2) (4) HTN (hypertension) Discharge Diagnoses with Status of Each Condition: (1) Diverticulitis abdominal pain, nausea, vomiting, diarrhea are resolved. pt tolerate diet. prescribe Cipro and Flagyl to home (2) Hyponatremia resolved (3) DM2 (diabetes mellitus, type 2) stable, followup PCP management (4) HTN (hypertension) stable,followup PCP management - HPI History of Present Illness: Ms. Mena is a 56-year-old female with a [facility] significance for DM2, macular degeneration, who presents the emergency department with complaints of right flank pain. pt report she has progressively worsened throughout 4 days. initially it was associated with nausea. Then she developed vomiting and loose stool The patient reports feeling weak, chilled and fatigued. She report her pain located her right mary area, and the pain is more likely pressure. Pt report she usually follow up the naturopathic doctor, and she took more than 10 naturopathic medications. Pt denies chest pain, Shortness of breath, fever, cough, headache, vision change, dysuria. CT of abdomen reveals proximal descending colon diverticulitis without apparent complication. Her sodium is 118. - ALLERGIES Allergies/Adverse Reactions: Allergies Allergy/AdvReac Type Severity Reaction Status Date / Time gluten Allergy Mild Nausea Verified 11/07/17 04:46 latex Allergy Mild Rash Verified 11/07/17 04:46 - MEDICATIONS Home Medications: Ambulatory Orders Medication Instructions Recorded Confirmed Losartan [Cozaar] 50 mg PO QPM 10/28/17 11/07/17 Ascorbic Acid 500 mg PO DAILY 11/07/17 11/07/17 Aspirin 325 mg PO DAILY 11/07/17 11/07/17 Cholecalciferol (Vitamin D3) 1,000 units PO DAILY 11/07/17 11/07/17 [Vitamin D3] Cyanocobalamin (Vitamin B-12) 1,000 mcg PO DAILY 11/07/17 11/07/17 [Vitamin B-12] Metformin HCl 500 mg PO TIDWM 11/07/17 11/07/17 Potassium Gluconate 99 mg PO DAILY 11/07/17 11/07/17 Saccharomyces Boulardii [Florastor] 250 mg PO BIDWM 11/07/17 11/07/17 Vitamin B Complex 1 tab PO DAILY 11/07/17 11/07/17 Ciprofloxacin HCl [Cipro] 500 mg PO BID #14 tablet 11/09/17 Ferrous Sulfate 325 mg PO DAILY #30 tablet 11/09/17 Metronidazole [Flagyl] 500 mg PO BID #14 tablet 11/09/17 - PHYSICAL EXAM AT DISCHARGE General Appearance: positive: No acute distress, Alert. negative: Lethargic Eyes Bilateral: positive: Normal inspection, PERRL, No lid inflammation, Conjunctivae nml ENT: positive: ENT inspection nml, Pharynx nml, No signs of dehydration. negative: Purulent nasal drainage, Pharyngeal erythema, Oral lesions Neck: positive: Nml inspection, Thyroid nml, No JVD, Trachea midline. negative : Thyromegaly, Lymphadenopathy (R), Lymphadenopathy (L), Stiff neck, Carotid bruit, Swelling/bruising, Tracheal deviation Respiratory: positive: Chest non-tender, No respiratory distress, Breath sounds nml. negative: Wheezes, Rales, Rhonchi Cardiovascular: positive: Regular rate & rhythm, No murmur, No gallop. negative : Irregularly irregular, Extrasystoles, Tachycardia, Bradycardia, JVD present, Systolic murmur, Diastolic murmur Peripheral Pulses: positive: 2+ Abdomen: positive: Non-tender, No organomegaly, Nml bowel sounds, No distention. negative: Tenderness, Guarding, Rebound Back: positive: Nml inspection. negative: CVA tenderness (R), CVA tenderness (L ) Skin: positive: Color nml, No rash, Warm, Dry. negative: Cyanosis, Diaphoresis , Pallor Extremities: positive: Non-tender, Full ROM, Nml appearance. negative: Calf tenderness, Joint swelling, Pamela's sign/cords Neurologic/Psychiatric: positive: Oriented x3, Motor nml, Sensation nml, Mood/ affect nml. negative: Weakness, Sensory loss, Facial droop, Slurred/abnml speech, Depressed mood/affect - LABS Result Diagrams: 11/09/17 04:30 11/09/17 04:30 - FOLLOW UP Follow Up: You may follow up your PCP in one week. Should your symptoms return or worsen, you may present ER or call 911 for help. - TIME SPENT Time Spent in Discharge (Minutes): 40
[2017-11-09] MEDS ORDERED: FLUCONAZOLE 100 MG TABLET PO SCH (14:00)
[2017-11-09 15:27] VITALS: BP 155/61
== END 2017-11-09 16:07 | disposition home or self-care (01) | DRG 392 ==
LOC: EDUNIT# → SUPCPDRO 04:37 → ED 04:37 → MS2 06:34
PROVIDERS: ADMIT Specialist; ATTEND Nurse Practitioner Gerontology
DX: K57.32 Diverticulitis of large intestine without perforation or abscess without bleeding (principal); E87.1 Hypo-osmolality and hyponatremia; E11.9 Type 2 diabetes mellitus without complications; I10 Essential (primary) hypertension; H35.30 Unspecified macular degeneration; Z85.828 Personal history of other malignant neoplasm of skin; Z79.84 Long term (current) use of oral hypoglycemic drugs
CPT/HCPCS: 36415; 74177; 80048; 80053; 81001; 81003; 82607; 82728; 83036; 83540; 83615; 83690; 84295; 84466; 85025; 85044; 87086; 96361; 96374; 96375; 99284

== ENCOUNTER 2017-11-23 23:46 | Outpatient (CLI) | payer MEDICAID | END 2017-11-23 23:47 | disposition critical access hospital (66) | LOC: EMS 23:46 | PROVIDERS: ATTEND Surgery | DX: R11.2 Nausea with vomiting, unspecified (principal); R42 Dizziness and giddiness | CPT/HCPCS: A0425; A0427; A0999 ==

== ENCOUNTER 2017-11-24 00:31 | Emergency (ER) | payer MEDICAID ==
--- NOTE | 2017-11-24 00:22 | ED Physician Documentation ---
PD HPI NVD - Stated complaint Stated Complaint: NAUSEA, VOMITING, DIZZY - History obtained from History obtained from: Patient, EMS - History of Present Illness Timing - onset: Yesterday Timing - details: Gradual onset Associated symptoms: Dizzy. No: Fever, Abdominal pain, Chest pain Improved by: Laying still Worsened by: Moving Recently seen: Admitted - Additonal information Additional information: c/o nausea, vomiting, dizziness, back pain, generalized weakness and tremulousness. symptoms started yesterday. She feels these are the same symptoms that resulted in admission to [facility] earlier this month, at which time she was found to have diverticulitis as well as hyponatremia. She says she had diarrhea yesterday but this resolved, and she feels she is now constipated. Given zofran 4 mg IV en route by medics with significant improvement in nausea. Review of Systems Constitutional: reports: Fatigue. denies: Fever, Chills, Sweats Eyes: reports: Reviewed and negative Cardiac: reports: Reviewed and negative Respiratory: reports: Reviewed and negative GI: reports: Nausea, Vomiting. denies: Abdominal Pain : denies: Dysuria, Frequency Skin: reports: Reviewed and negative Musculoskeletal: reports: Reviewed and negative Neurologic: reports: Generalized weakness. denies: Focal weakness, Numbness, Headache PD PAST MEDICAL HISTORY - Past Medical History Past Medical History: Yes - Present Medications Home Medications: Ambulatory Orders Medication Instructions Recorded Confirmed Losartan [Cozaar] 50 mg PO QPM 10/28/17 11/07/17 Ascorbic Acid 500 mg PO DAILY 11/07/17 11/07/17 Aspirin 325 mg PO DAILY 11/07/17 11/07/17 Cholecalciferol (Vitamin D3) 1,000 units PO DAILY 11/07/17 11/07/17 [Vitamin D3] Cyanocobalamin (Vitamin B-12) 1,000 mcg PO DAILY 11/07/17 11/07/17 [Vitamin B-12] Metformin HCl 500 mg PO TIDWM 11/07/17 11/07/17 Potassium Gluconate 99 mg PO DAILY 11/07/17 11/07/17 Saccharomyces Boulardii [Florastor] 250 mg PO BIDWM 11/07/17 11/07/17 Vitamin B Complex 1 tab PO DAILY 11/07/17 11/07/17 Ciprofloxacin HCl [Cipro] 500 mg PO BID #14 tablet 11/09/17 Ferrous Sulfate 325 mg PO DAILY #30 tablet 11/09/17 Metronidazole [Flagyl] 500 mg PO BID #14 tablet 11/09/17 LORazepam [Ativan] 0.5 mg PO Q6H PRN #7 tablet 11/24/17 Ondansetron Odt [Zofran] 4 mg TL Q6H PRN #10 tablet 11/24/17 - Allergies Allergies/Adverse Reactions: Allergies Allergy/AdvReac Type Severity Reaction Status Date / Time gluten Allergy Mild Nausea Verified 11/24/17 00:43 latex Allergy Mild Rash Verified 11/24/17 00:43 - Living Situation Living Arrangement: reports: At home - Social History Does the pt smoke?: No PD ED PE NORMAL - Vitals Vital signs reviewed: Yes - General General: Alert and oriented X 3, Well developed/nourished, Other (fluctuating tremulousness) - HEENT HEENT: PERRL, EOMI, Moist mucous membranes - Neck Neck: Supple, no meningeal sign - Cardiac Cardiac: RRR, No murmur, No gallop, No rub - Respiratory Respiratory: No respiratory distress, Clear bilaterally - Abdomen Abdomen: Normal bowel sounds, Soft, Non tender, Non distended - Back Back: No CVA TTP - Derm Derm: Normal color, Warm and dry, No rash - Extremities Extremities: No edema - Neuro Neuro: Alert and oriented X 3, advanced practice rn 2-12 intact, No motor deficit, No sensory deficit, Normal speech Eye Opening: Spontaneous Motor: Obeys Commands Verbal: Oriented GCS Score: 15 Results - Vitals Vitals: Vital Signs - 24 hr 11/24/17 11/24/17 00:36 04:00 Temperature 36.3 C L Heart Rate 72 62 Respiratory 20 16 Rate Blood Pressure 163/102 H 148/73 H O2 Saturation 100 99 Oxygen O2 Source Room air - Labs Labs: Laboratory Tests 11/24/17 11/24/17 11/24/17 00:55 00:55 00:55 WBC 7.3 RBC 4.00 L Hgb 10.7 L Hct 31.8 L MCV 79.5 L MCH 26.7 L MCHC 33.6 RDW 17.0 H Plt Count 273 MPV 6.8 L Neut # (Auto) 5.4 Lymph # (Auto) 1.3 L [place] # (Auto) 0.4 Eos # (Auto) 0.1 Baso # (Auto) 0.1 Absolute Nucleated RBC 0.01 Nucleated RBC % 0.1 Sodium 122 L Potassium 3.8 Chloride 86 L Carbon Dioxide 23 Anion Gap 12.0 BUN 9 Creatinine 0.6 Estimated GFR (MDRD) 104 Glucose 122 H Calcium 9.6 Total Bilirubin 1.8 H AST 26 ALT 28 Alkaline Phosphatase 61 Total Protein 7.8 Albumin 4.0 Globulin 3.8 Albumin/Globulin Ratio 1.1 Lipase 28 TSH 0.83 Urine Color Urine Clarity Urine pH Ur Specific Critz Urine Protein Urine Glucose (UA) Urine Ketones Urine Occult Blood Urine Nitrite Urine Bilirubin Urine Urobilinogen Ur Leukocyte Esterase Ur Microscopic Review Urine Culture Comments 11/24/17 01:05 WBC RBC Hgb Hct MCV MCH MCHC RDW Plt Count MPV Neut # (Auto) Lymph # (Auto) [place] # (Auto) Eos # (Auto) Baso # (Auto) Absolute Nucleated RBC Nucleated RBC % Sodium Potassium Chloride Carbon Dioxide Anion Gap BUN Creatinine Estimated GFR (MDRD) Glucose Calcium Total Bilirubin AST ALT Alkaline Phosphatase Total Protein Albumin Globulin Albumin/Globulin Ratio Lipase TSH Urine Color YELLOW Urine Clarity CLEAR Urine pH 8.0 H Ur Specific Critz 1.010 Urine Protein NEGATIVE Urine Glucose (UA) NEGATIVE Urine Ketones 15 H Urine Occult Blood NEGATIVE Urine Nitrite NEGATIVE Urine Bilirubin NEGATIVE Urine Urobilinogen 0.2 (NORMAL) Ur Leukocyte Esterase NEGATIVE Ur Microscopic Review NOT INDICATED Urine Culture Comments NOT INDICATED - Rads (name of study) CT head Radiology: Prelim report reviewed, See rad report PD MEDICAL DECISION MAKING - ED course Complexity details: reviewed old records, reviewed results, re-evaluated patient , considered differential, d/w patient ED course: moderate hyponatremia on tonight's results (122). Given 2 liters NS in ED. She responded well to 4mg morphine (for back pain) and 1 mg IV ativan (for tremulousness). - Sepsis Event Vital Signs: Vital Signs - 24 hr 11/24/17 11/24/17 00:36 04:00 Temperature 36.3 C L Heart Rate 72 62 Respiratory 20 16 Rate Blood Pressure 163/102 H 148/73 H O2 Saturation 100 99 Oxygen O2 Source Room air Departure - Departure Disposition: 01 Home, Self Care Clinical Impression: Hyponatremia Condition: Good Instructions: ED Hyponatremia Follow-Up: PARK PABLO [Primary Care Provider] - Prescriptions: LORazepam [Ativan] 0.5 mg PO Q6H PRN #7 tablet PRN Reason: Anxiety Ondansetron Odt [Zofran] 4 mg TL Q6H PRN #10 tablet PRN Reason: Nausea / Vomiting Discharge Date/Time: 11/24/17 04:59
[2017-11-24] MEDS ORDERED: SODIUM CHLORIDE 0.9% 1,000 ML IV STA ×2 (00:46→02:10)
[2017-11-24 01:09] LABS: BILIRUBIN,URINE NEGATIVE (NEGATIVE); GLUCOSE, URINE (UA) NEGATIVE (NEGATIVE); KETONES,URINE (UA) 15 mg/dL (NEGATIVE); LEUKOCYTE ESTERASE, URINE NEGATIVE (NEGATIVE); NITRITE,URINE NEGATIVE (NEGATIVE); OCCULT BLOOD,URINE NEGATIVE (NEGATIVE); PROTEIN,URINE NEGATIVE (NEGATIVE); UROBILINOGEN,URINE 0.2 (NORMAL) E.U./dL (NORMAL)
[2017-11-24 01:09] LABS: BASOPHILS # (AUTO) 0.1 10^3/uL (0.0-0.1); BASOPHILS % (AUTO) 0.8 %; EOSINOPHILS # (AUTO) 0.1 10^3/uL (0.0-0.7); EOSINOPHILS % (AUTO) 0.8 %; HGB - HEMOGLOBIN 10.7 g/dL (12.0-16.0); LYMPHOCYTES # (AUTO) 1.3 10^3/uL (1.5-3.5); LYMPHOCYTES % (AUTO) 18.2 %; MEAN CORPUSCULAR HEMOGLOBIN 26.7 pg (27.0-31.0); MEAN CORPUSCULAR HGB CONC 33.6 g/dL (32.0-36.0); MEAN CORPUSCULAR VOLUME 79.5 fL (81.0-99.0); MEAN PLATELET VOLUME 6.8 fL (7.9-10.8); MONOCYTES # (AUTO) 0.4 10^3/uL (0.0-1.0); MONOCYTES % (AUTO) 5.6 %; NEUTROPHILS # (AUTO) 5.4 10^3/uL (1.5-6.6); NEUTROPHILS % (AUTO) 74.6 %; PLT - PLATELET COUNT 273 10^3/uL (130-450); WHITE BLOOD COUNT 7.3 x10^3/uL (4.8-10.8)
[2017-11-24 01:16] LABS: ALBUMIN/GLOBULIN RATIO 1.1 (1.0-2.2); BILIRUBIN,TOTAL 1.8 mg/dL (0.2-1.0); CALCIUM 9.6 mg/dL (8.5-10.3); CREATININE 0.6 mg/dL (0.4-1.0); TOTAL PROTEIN 7.8 g/dL (6.7-8.2)
[2017-11-24 01:20] LABS: CLARITY,URINE CLEAR (CLEAR)
[2017-11-24] MEDS ORDERED: MORPHINE 2 MG/ML SYRINGE IVP STA (01:54)
[2017-11-24] MEDS ORDERED: LORazepam 2 MG/ML VIAL IVP STA ×2 (01:57→02:10)
--- NOTE | 2017-11-24 03:48 | CT Report ---
Procedure Date: 11/24/2017 Accession Number: [id number] / [id number] Procedure: CT - Head W/O CPT Code: FULL RESULT: EXAM: CT HEAD EXAM DATE: 11/24/2017 03:24 AM. CLINICAL HISTORY: AMS. COMPARISON: None. TECHNIQUE: Multiaxial CT images were obtained from the foramen magnum to the vertex. Reformats: Coronal. IV contrast: None. In accordance with CT protocol optimization, one or more of the following dose reduction techniques were utilized for this exam: automated exposure control, adjustment of mA and/or KV based on patient size, or use of iterative reconstructive technique. FINDINGS: Parenchyma: No intraparenchymal hemorrhage. No evidence of mass, midline shift, or CT findings of infarction. Cuadra-white differentiation is distinct. There is patchy low attenuation throughout the white matter both cerebral hemispheres suggesting a moderate degree of chronic microvascular change. Extraaxial Spaces: Normal for age. No subdural or epidural collections identified. Ventricles: Normal in size and position. Sinuses and Orbits: Imaged paranasal sinuses, orbits, and mastoids show no significant abnormality. Bones: No evidence of fracture or calvarial defect. Other: None. IMPRESSION: 1. No acute intracranial abnormality. 2. There is patchy low attenuation throughout the white matter of both cerebral hemispheres suggesting a moderate degree of chronic microvascular ischemic change. 3. No intracranial mass lesion, mass effect, or hydrocephalus. RADIA
[2017-11-24 04:59] VITALS: BP 148/73
== END 2017-11-24 04:59 | disposition home or self-care (01) ==
LOC: EDUNIT# → ED 00:31
DX: E87.1 Hypo-osmolality and hyponatremia (principal); M54.9 Dorsalgia, unspecified
CPT/HCPCS: 70450; 80053; 81003; 83690; 84443; 85025; 96361; 96374; 99283; 99284; J2060; J2270; 36415; 81001; 87086

== ENCOUNTER 2022-03-26 17:14 | Emergency (ER) | payer MEDICAID ==
[2022-03-26 17:56] LABS: BASOPHILS # (AUTO) 0.1 10^3/uL (0.0-0.1); BASOPHILS % (AUTO) 0.6 %; EOSINOPHILS # (AUTO) 0.1 10^3/uL (0.0-0.7); HCT - HEMATOCRIT 39.7 % (37.0-47.0); HGB - HEMOGLOBIN 13.2 g/dL (12.0-16.0); LYMPHOCYTES % (AUTO) 20.6 %; MEAN CORPUSCULAR HEMOGLOBIN 28.1 pg (27.0-31.0); MEAN CORPUSCULAR HGB CONC 33.2 g/dL (32.0-36.0); MEAN CORPUSCULAR VOLUME 84.5 fL (81.0-99.0); MONOCYTES # (AUTO) 0.7 10^3/uL (0.0-1.0); MONOCYTES % (AUTO) 6.6 %; NEUTROPHILS # (AUTO) 6.9 10^3/uL (1.5-6.6); NEUTROPHILS % (AUTO) 70.9 %; PLT - PLATELET COUNT 382 10^3/uL (130-450); RED CELL DISTRIBUTION WIDTH 12.8 % (12.0-15.0); WHITE BLOOD COUNT 9.8 x10^3/uL (4.8-10.8)
--- NOTE | 2022-03-26 18:01 | ED Physician Documentation ---
<Hernan Lynn - Last Filed: 03/26/22 19:20> PD HPI ABD PAIN - Stated complaint Stated Complaint: FEMALE - Chief complaint Chief Complaint: Abd Pain - History obtained from History obtained from: Patient - History of Present Illness Timing - onset: How many days ago (5-6) Timing - duration: Days (5-6) Timing - details: Gradual onset, Still present Quality: Cramping, Aching, Pain Location: Periumbilical, RLQ Radiation: Lower back Improved by: BM. No: Eating Worsened by: Moving, Palpation, Other (Hurts with urinating with a stinging and burning feeling.). No: Eating Similar symptoms before: Diagnosis (has felt this with UTIs in the past but also once with diverticulitis.) Recently seen: Clinic (Telehealth appt with Rx Macrobid for possible UTI 5 days ago. No improvement. Seen at [facility] with neg UA and neg Uculture. Pt here for continued symptoms.) PD PAST MEDICAL HISTORY - Past Medical History Cardiovascular: None Respiratory: None Neuro: None Endocrine/Autoimmune: Type 2 diabetes HEENT: Macular degeneration Derm: Other - Past Surgical History Past Surgical History: Yes HEENT: Cataracts, Detached retina repair, Other Derm: Skin cancer surgery - Present Medications Home Medications: Ambulatory Orders Medication Instructions Recorded Confirmed Losartan [Cozaar] 50 mg PO QPM /05/1711/07/17 Ascorbic Acid 500 mg PO DAILY 11/07/17 11/07/17 Aspirin 325 mg PO DAILY 11/07/17 11/07/17 Cholecalciferol (Vitamin D3) 1,000 units PO DAILY 11/07/17 11/07/17 [Vitamin D3] Cyanocobalamin (Vitamin B-12) 1,000 mcg PO DAILY 11/07/17 11/07/17 [Vitamin B-12] Metformin HCl 500 mg PO TIDWM 11/07/17 11/07/17 Potassium Gluconate 99 mg PO DAILY 11/07/17 11/07/17 Saccharomyces Boulardii [Florastor] 250 mg PO BIDWM 11/07/17 11/07/17 Vitamin B Complex 1 tab PO DAILY 11/07/17 11/07/17 Ciprofloxacin HCl [Cipro] 500 mg PO BID #14 tablet 11/09/17 Ferrous Sulfate 325 mg PO DAILY #30 tablet 11/09/17 metroNIDAZOLE [Flagyl] 500 mg PO BID #14 tablet 11/09/17 LORazepam [Ativan] 0.5 mg PO Q6H PRN #7 tablet 11/24/17 Ondansetron Odt [Zofran] 4 mg TL Q6H PRN #10 tablet 11/24/17 - Allergies Allergies/Adverse Reactions: Allergies Allergy/AdvReac Type Severity Reaction Status Date / Time gluten Allergy Mild Nausea Verified 11/24/17 00:43 latex Allergy Mild Rash Verified 11/24/17 00:43 fluconazole Allergy Unknown Verified 03/26/22 17:36 - Social History Does the pt smoke?: No Smoking Status: Never smoker Does the pt drink ETOH?: Yes Does the pt have substance abuse?: No - Immunizations Immunizations are current?: Yes - POLST Patient has POLST: No POLST Status: Full Code PD MEDICAL DECISION MAKING - ED course Complexity details: considered differential (Given the normal urinalysis and no improvement on Macrobid, I am more inclined to think diverticulitis. The patient however would like further evaluation and not treat empirically so we will get CT as well as labs.), d/w patient Departure - Departure Disposition: Home, Self Care Clinical Impression: Abdominal pain Qualifiers: Abdominal location: generalized Qualified Code(s): R10.84 - Generalized abdominal pain Condition: Stable Record reviewed to determine appropriate education?: Yes Instructions: ED Abdominal Pain Female Non-Specific Abdominal Pain, ED Dysuria Uncertain Cause, ED Hyponatremia Follow-Up: EDENILSON GARCIA ARNP [Primary Care Provider] - Within 1 week Comments: The cause of your symptoms is not apparent at this time. The CT scan of your abdomen/pelvis does not reveal any abnormalities that would explain your symptoms. Incidentally noted are diverticulosis (common abnormality of the colon which does not cause symptoms unless it becomes inflamed, which is diverticulitis and has a different appearance on the CT scan), hepatic steatosis ("fatty liver", unrelated to symptoms and usually not a concerning finding, but follow up with your primary care provider regarding this finding), hardening of the coronary arteries (atherosclerosis), and a compression fracture of T11 (one of the vertebra in your back; it appears to be a chronic (not new) finding). Follow up with your primary care provider for reevaluation. Your sodium level was low tonight, but not to a dangerous extent (and it has been significantly lower in the past). <Victorino Gunn - Last Filed: 03/26/22 23:20> Results - Vitals Vitals: Vital Signs - 24 hr 03/26/22 03/26/22 17:26 21:19 Temperature 36.2 C L Heart Rate 76 71 Respiratory 16 18 Rate Blood Pressure 163/82 H 140/74 H O2 Saturation 98 97 Oxygen O2 Source Room air - Labs Labs: Laboratory Tests 03/26/22 03/26/22 03/26/22 17:47 17:47 17:47 WBC 9.8 RBC 4.70 Hgb 13.2 Hct 39.7 MCV 84.5 MCH 28.1 MCHC 33.2 RDW 12.8 Plt Count 382 MPV 9.0 Neut # (Auto) 6.9 H Lymph # (Auto) 2.0 Schley # (Auto) 0.7 Eos # (Auto) 0.1 Baso # (Auto) 0.1 Absolute Nucleated RBC 0.00 Nucleated RBC % 0.0 Sodium 126 L Potassium 4.1 Chloride 89 L Carbon Dioxide 26 Anion Gap 11.0 BUN 9 Creatinine 0.5 Estimated GFR (MDRD) 126 Glucose 125 H Calcium 10.2 Magnesium 2.1 Total Bilirubin 0.8 AST 27 ALT 45 Alkaline Phosphatase 75 Total Protein 8.2 Albumin 4.6 Globulin 3.6 Albumin/Globulin Ratio 1.3 Lipase 48 Urine Color Urine Clarity Urine pH Ur Specific [place] Urine Protein Urine Glucose (UA) Urine Ketones Urine Occult Blood Urine Nitrite Urine Bilirubin Urine Urobilinogen Ur Leukocyte Esterase Ur Microscopic Review Urine Culture Comments 03/26/22 18:25 WBC RBC Hgb Hct MCV MCH MCHC RDW Plt Count MPV Neut # (Auto) Lymph # (Auto) Schley # (Auto) Eos # (Auto) Baso # (Auto) Absolute Nucleated RBC Nucleated RBC % Sodium Potassium Chloride Carbon Dioxide Anion Gap BUN Creatinine Estimated GFR (MDRD) Glucose Calcium Magnesium Total Bilirubin AST ALT Alkaline Phosphatase Total Protein Albumin Globulin Albumin/Globulin Ratio Lipase Urine Color LT. YELLOW Urine Clarity CLEAR Urine pH 6.0 Ur Specific [place] <=1.005 Urine Protein NEGATIVE Urine Glucose (UA) NEGATIVE Urine Ketones NEGATIVE Urine Occult Blood NEGATIVE Urine Nitrite NEGATIVE Urine Bilirubin NEGATIVE Urine Urobilinogen 0.2 (NORMAL) Ur Leukocyte Esterase NEGATIVE Ur Microscopic Review NOT INDICATED Urine Culture Comments NOT INDICATED
[2022-03-26 18:05] LABS: ALBUMIN 4.6 g/dL (3.2-5.5); ALBUMIN/GLOBULIN RATIO 1.3 (1.0-2.2); BILIRUBIN,TOTAL 0.8 mg/dL (0.2-1.0); CALCIUM 10.2 mg/dL (8.5-10.3); CREATININE 0.5 mg/dL (0.4-1.0); POTASSIUM 4.1 mmol/L (3.5-5.0); TOTAL PROTEIN 8.2 g/dL (6.7-8.2)
[2022-03-26 18:30] LABS: BILIRUBIN,URINE NEGATIVE (NEGATIVE); GLUCOSE, URINE (UA) NEGATIVE (NEGATIVE); KETONES,URINE (UA) NEGATIVE (NEGATIVE); LEUKOCYTE ESTERASE, URINE NEGATIVE (NEGATIVE); NITRITE,URINE NEGATIVE (NEGATIVE); OCCULT BLOOD,URINE NEGATIVE (NEGATIVE); PROTEIN,URINE NEGATIVE (NEGATIVE); UROBILINOGEN,URINE 0.2 (NORMAL) E.U./dL (NORMAL)
[2022-03-26 18:31] LABS: CLARITY,URINE CLEAR (CLEAR)
[2022-03-26] MEDS ORDERED: SODIUM CHLORIDE 0.9% 1,000 ML IV STA (18:34)
[2022-03-26] MEDS ORDERED: KETOROLAC 15 MG/ML VIAL IVP STA (18:34)
[2022-03-26] MEDS ORDERED: iohexoL-300 100 ML VIAL ONE (18:48)
[2022-03-26] MEDS ORDERED: cefTRIAXone 1 GM VIAL IVP STA (19:19)
[2022-03-26] MEDS ORDERED: iohexoL-300 100 ML VIAL IVP ONE (19:40)
--- NOTE | 2022-03-26 20:11 | CT Report ---
PROCEDURE: ABDOMEN/PELVIS W INDICATIONS: lower abd pain, consider diverticulitis CONTRAST: 100 ML OMNI 300 TECHNIQUE: After the administration of IV contrast, 5 mm thick sections acquired from the diaphragms to the symp hysis. 5 mm thick coronal and sagittal reformats were acquired. For radiation dose reduction, the f ollowing was used: automated exposure control, adjustment of mA and/or kV according to patient size. COMPARISON: CT of abdomen and pelvis with, 11/07/2017. FINDINGS: Image quality: Excellent. ABDOMEN: Lung bases: Lung bases are clear. Heart size is normal. Moderate coronary artery calcification. Sma ll hiatal hernia. Solid organs: Liver and spleen are normal in size and enhancement. Mild hepatic steatosis. Gallblad kelvin is normal. Biliary system is non dilated. Pancreas enhances normally. No adrenal nodules. Kid neys demonstrate normal size and enhancement, without hydronephrosis. Peritoneum and bowel: Bowel loops demonstrate normal wall thickness and caliber. Normal appendix. Th ere are numerous colonic diverticula scattered in colon. No CT findings to suggest acute diverticulit is. No free fluid or air. Nodes and vessels: No retroperitoneal or mesenteric adenopathy by size criteria. Mildly prominent pe riportal lymph nodes are noted. Aorta and inferior vena cava are normal in size. Miscellaneous: Small fat-containing umbilical hernia. PELVIS: Genitourinary: Bladder wall thickness is normal. Miscellaneous: No inguinal hernias or adenopathy. Bones: No suspicious bony lesions. Moderate chronic T11 vertebral body compression fracture. IMPRESSION: 1. Diverticulosis without acute diverticulitis. 2. Normal appendix. 3. Hepatic steatosis. 4. Moderate coronary atherosclerosis. 5. Moderate chronic compression fracture of T11. Reviewed by: Ethel Reyna MD on 03/26/2022 8:10 PM PST Approved by: Ethel Reyna MD on 03/26/2022 8:10 PM PST Station ID: [id number]
[2022-03-27 00:05] VITALS: BP 148/74
--- NOTE | 2022-03-27 00:07 | ED Physician Documentation ---
ED Addendum - Addendum Addendum: 03/27/22 00:07 I am prescribing a short course of short-acting opioid pain medication for this patient. 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 I have discussed that the opioids are for short term therapy only, and will not be refilled from the ED 03/27/22 09:34 Received sign out from Dr. Lynn at end of his shift, CT A/P results pending. The CT A/P does not have any acute/diagnostic findings (diverticulosis without diverticulitis, hepatic steatosis, moderate coronary atherosclerosis, moderate chronic compression fracture of T11, normal appendix). I reviewed the results with her and answered her questions regarding these findings. At this point the cause of her symptoms is not apparent and further emergent testing is not indicated. She is comfortable with d/c home. I was told by ED RN that patient wanted to again speak with me; she is requesting something for the symptoms. In further discussion, she says she has had inadequate relief with pyridium, tylenol, ibuprofen, but wants to avoid narcotic medication. We further discussed the lack of other options for analgesic medications given this information. I recommended ultram, explaining that it is a narcotic but milder than most other narcotic medications, and she is accepting of this rx to try (mostly for sleep). She drove to ED and thus will have to wait until the pharmacy is open. I electronically submitted the rx to her pharmacy of choice
== END 2022-03-27 00:06 | disposition home or self-care (01) ==
LOC: ED 17:14
DX: R10.84 Generalized abdominal pain (principal); K57.30 Diverticulosis of large intestine without perforation or abscess without bleeding; K76.0 Fatty (change of) liver, not elsewhere classified; I25.10 Atherosclerotic heart disease of native coronary artery without angina pectoris; M48.54XA Collapsed vertebra, not elsewhere classified, thoracic region, initial encounter for fracture
CPT/HCPCS: 36415; 74177; 80053; 81003; 83690; 83735; 85025; 96374; 96375; 99283; 99284; Q9967; 81001; 87086

== ENCOUNTER 2023-08-28 13:11 | Outpatient (CLI) | payer MEDICAID ==
[2023-08-28 20:25] LABS: ALBUMIN 4.7 g/dL (3.2-5.5); ALBUMIN/GLOBULIN RATIO 1.2 (1.0-2.2); ALKALINE PHOSPHATASE 84 IU/L (42-121); ALT ALANINE AMINOTRANSFERASE 33 IU/L (10-60); AST ASPARTATE AMINOTRANSFERASE 30 IU/L (10-42); BILIRUBIN,TOTAL 0.8 mg/dL (0.2-1.0); BUN - BLOOD UREA NITROGEN 16 mg/dL (6-20); CALCIUM 10.7 mg/dL (8.5-10.3); CARBON DIOXIDE - CO2 31 mmol/L (21-32); CHLORIDE 99 mmol/L (101-111); CREATININE 0.6 mg/dL (0.6-1.3); GFR - MDRD 102 (>89); GLUCOSE 106 mg/dL (74-104); POTASSIUM 4.7 mmol/L (3.5-4.5); SODIUM 136 mmol/L (135-145); THYROID STIMULATING HORMONE 1.13 uIU/mL (0.34-5.60); TOTAL PROTEIN 8.5 g/dL (6.4-8.9)
[2023-08-28 21:06] LABS: ESTIMATED AVERAGE GLUCOSE 157 mg/dL (70-100); HEMOGLOBIN A1c% 7.1 % (4.27-6.07)
[2023-08-29 04:32] LABS: HDL CHOLESTEROL 63 mg/dL
[2023-08-29 04:34] LABS: CHOL/HDL RATIO 2.8 (<4.4); CHOLESTEROL 179 mg/dL; LDL CHOLESTEROL,CALCULATED 98 mg/dL; LDL/HDL RATIO 1.6 (<4.4); TRIGLYCERIDES 92 mg/dL (48-352); VLDL CHOLESTEROL 18 mg/dL
== END 2023-08-28 13:12 | disposition home or self-care (01) ==
LOC: LAB.S 13:11
PROVIDERS: ATTEND Internal Medicine Endocrinology, Diabetes & Metabolism
DX: E11.8 Type 2 diabetes mellitus with unspecified complications (principal)
CPT/HCPCS: 36415; 80053; 80061; 83036; 83721; 84436; 84439; 84443